=== PATIENT | female | born 1995 | race Caucasian/White ===

== ENCOUNTER 2017-05-02 03:03 | Inpatient (IN) | payer BC, OTHER, MEDICAID ==
[2017-05-02] MEDS ORDERED: Nalbuphine* 20 MG/ML 1 ML VIAL ONE (05:59)
[2017-05-02] MEDS ORDERED: Promethazine INJ(RESTRICTED)* 25 MG/ML 1 ML VIAL ONE (06:00)
[2017-05-02 08:03] LABS: Hematocrit 35 % (35-47); Hemoglobin 11.4 g/dl (12.0-16.0); Mean Corpuscular HGB Conc 33 g/dl (31-36); Mean Corpuscular Hemoglobin 24 pg (27-31); Mean Corpuscular Volume 75 fL (80-97); Mean Platelet Volume 8 um3 (7.4-10.4); Platelet Count 283 10^3/ul (150-450); Red Blood Count 4.67 10^6/ul (4.0-5.4); Red Cell Distribution Width 19 % (10.5-15); White Blood Count 14.7 10^3/ul (3.5-10.8)
[2017-05-02] MEDS ORDERED: OBEPIDURAL* 250 ML EPIDURAL ONE (10:09)
[2017-05-02] MEDS ORDERED: Sodium Citrate/Citric Acid* 15 ML UDC PO PRN (10:29)
[2017-05-02] MEDS ORDERED: Famotidine TAB* 20 MG PO PRN (10:29)
[2017-05-02] MEDS ORDERED: EPHEDrine (Pressors)* 50 MG/ML VIAL IV PUSH PRN (10:29)
[2017-05-02] MEDS ORDERED: Phenylephrine IV* 40 MCG/ML 10 ML SYRINGE IV PUSH PRN (10:29)
[2017-05-02] MEDS ORDERED: OBEPIDURAL* 250 ML EPIDURAL SCH (11:00)
[2017-05-02] MEDS ORDERED: Oxytocin in LR* 20 UNITS/1,000 ML BAG IVPB SCH (15:00)
[2017-05-02] MEDS ORDERED: ceFOXitin 2 GM IVPREMIX* 2 GM/50 ML BAG ONE (20:27)
[2017-05-02] MEDS ORDERED: ceFOXitin 2 GM IVPREMIX* 2 GM/50 ML BAG IVPB ONE (20:29)
[2017-05-02] MEDS ORDERED: Midazolam* 1 MG/ML 10 ML VIAL (10 MG) ONE (20:58)
[2017-05-02] MEDS ORDERED: fentaNYL* 50 MCG/ML 2 ML VIAL (100 MCG VIAL) ONE (20:58)
[2017-05-02] MEDS ORDERED: Morphine PF AMP (0.5MG/ML)* 5 MG/10 ML AMP ONE (20:58)
[2017-05-02] MEDS ORDERED: KETAMINE HCL* 50 MG/ML 10 ML VIAL ONE (20:58)
[2017-05-02] MEDS ORDERED: Naloxone* 0.4 MG/ML 1 ML VIAL IV PRN ×2 (21:38→21:45)
[2017-05-02] MEDS ORDERED: Nalbuphine* 20 MG/ML 1 ML VIAL IV PRN (21:38)
[2017-05-02] MEDS ORDERED: oxyCODONE/Acetamin 5/325 MG* TAB PO PRN (21:38)
[2017-05-02] MEDS ORDERED: Ondansetron INJ* 2 MG/ML VIAL IV PRN (21:38)
[2017-05-02] MEDS ORDERED: diPHENhydraMINE IV* 50 MG/ML 1 ml VIAL (BENADRYL) IV PRN (21:38)
[2017-05-02] MEDS ORDERED: Scopolamine PATCH Remove* 1 NOTE MISC PATCH OFF PRN (21:38)
[2017-05-02] MEDS ORDERED: PROCHLORPERAZINE INJ 5 MG/ML 2 ML VIAL IV PRN (21:38)
[2017-05-02] MEDS ORDERED: Naloxone* 2 MG in NS 0.9% 250 ML* 250 ML IV PRN (21:38)
[2017-05-02] MEDS ORDERED: fentaNYL* 50 MCG/ML 2 ML VIAL (100 MCG VIAL) IV PRN (21:45)
[2017-05-02] MEDS ORDERED: EPHEDrine (Pressors)* 50 MG/ML VIAL ONE (22:27)
[2017-05-02] MEDS ORDERED: Lidocaine 2% EPI 1:200000 MPF* 20 ML VIAL ONE (22:27)
[2017-05-02] MEDS ORDERED: Scopolamine 1.5 mg* PATCH ONE (22:27)
[2017-05-02] MEDS ORDERED: Lidocaine 2% PF* 10 ML AMP ONE (22:27)
[2017-05-02] MEDS ORDERED: Dexamethasone IV* 4 MG/ML 1 ML (4 MG) ONE (22:27)
[2017-05-02] MEDS ORDERED: Ondansetron INJ* 2 MG/ML VIAL ONE (22:27)
[2017-05-02] MEDS ORDERED: Ketorolac INJ* 30 MG/ML 1 ML VIAL ONE (22:27)
[2017-05-02] MEDS ORDERED: Acetaminophen TAB* 325 MG PO PRN (22:32)
[2017-05-02] MEDS ORDERED: Dibucaine 1% 28.35 GM TUBE PR PRN (22:32)
[2017-05-02] MEDS ORDERED: Witch Hazel PAD* JAR TOPICAL PRN (22:32)
[2017-05-02] MEDS ORDERED: Glycerin ADULT SUPP PR PRN (22:32)
[2017-05-03] MEDS: Ketorolac INJ* 30 MG/ML 1 ML VIAL IV PRN ×4 (00:01→19:57)
[2017-05-03 06:16] LABS: ABS Basophils 0 10^3/ul (0-0.2); ABS Eosinophils 0 10^3/ul (0-0.6); ABS Monocytes 0.7 10^3/ul (0-0.8); ABS Neutrophils 19.1 10^3/ul (1.5-7.7); ABS Nucleated RBC 0 10^3/ul; Eosinophil % 0 % (0-6); Hematocrit 29 % (35-47); Hemoglobin 9.5 g/dl (12.0-16.0); Lymphocyte % 4.9 % (25-47); Mean Corpuscular HGB Conc 33 g/dl (31-36); Mean Corpuscular Hemoglobin 24 pg (27-31); Mean Corpuscular Volume 75 fL (80-97); Mean Platelet Volume 8 um3 (7.4-10.4); Nucleated Red Blood Cells % 0; Platelet Count 253 10^3/ul (150-450); Red Blood Count 3.91 10^6/ul (4.0-5.4); Red Cell Distribution Width 19 % (10.5-15); White Blood Count 20.9 10^3/ul (3.5-10.8)
[2017-05-03] MEDS: Simethicone TAB* 80 MG TAB.CHEW PO SCH ×4 (08:54→20:09)
[2017-05-03] MEDS: Docusate CAP* 100 MG PO SCH ×3 (08:54→19:57)
[2017-05-03] MEDS: Ferrous Gluconate TAB* 324 MG TAB PO SCH ×2 (08:54→19:57)
--- NOTE | 2017-05-03 09:41 | PN ---
Progress Note - Progress Note Date of Service: 05/03/17 Note: Anesthesia duramorph follow up, alert neuro ok, VSS, -NV, pain well controlled. s/p CS, continue oral meds.
[2017-05-03] MEDS ORDERED: Zolpidem TAB* 5 MG PO PRN (13:45)
[2017-05-03] MEDS ORDERED: oxyCODONE/Acetamin 5/325 MG* TAB PO PRN (13:45)
[2017-05-04] MEDS: oxyCODONE/Acetamin 5/325 MG* TAB PO PRN ×5 (03:27→22:38)
[2017-05-04] MEDS: Ibuprofen TAB* 600 MG PO PRN ×4 (03:28→20:34)
[2017-05-04] MEDS: Simethicone TAB* 80 MG TAB.CHEW PO SCH ×4 (09:09→20:34)
[2017-05-04] MEDS: Docusate CAP* 100 MG PO SCH ×3 (09:09→20:34)
[2017-05-04] MEDS: Ferrous Gluconate TAB* 324 MG TAB PO SCH ×2 (09:10→20:34)
[2017-05-05] MEDS: oxyCODONE/Acetamin 5/325 MG* TAB PO PRN (03:38)
[2017-05-05] MEDS: Ibuprofen TAB* 600 MG PO PRN (03:39)
[2017-05-05 08:02] VITALS: BP 127/60
[2017-05-05] MEDS: Simethicone TAB* 80 MG TAB.CHEW PO SCH (08:39)
[2017-05-05] MEDS: Docusate CAP* 100 MG PO SCH (08:39)
[2017-05-05] MEDS: Ferrous Gluconate TAB* 324 MG TAB PO SCH (08:39)
--- NOTE | 2017-05-05 23:41 | OP ---
CC: Dr. Bree Mosley * DATE OF OPERATION: 05/02/17 - ROOM #116 DATE OF : [birth year] SURGEON: Damion Lehman MD CONTROL INTEGRATION ENGINEER: Dr. Mosley. ANESTHESIA: Epidural. PRE-OP DIAGNOSIS: Intrauterine at 40 weeks with arrest of dilation and labor. POST-OP DIAGNOSIS: Intrauterine at 40 weeks with arrest of dilation and labor. OPERATIVE PROCEDURE: Primary low-transverse section. FLUIDS: She received 1600 cc of IV crystalloid fluid. ESTIMATED BLOOD LOSS: 700 cc. URINE OUTPUT: Clear. FINDINGS: Delivery of a male weighing 8 pounds 2 ounces with Agars of 9 and 9 over meconium-stained fluid. The placenta, uterus, bowel, bladder, and adnexa were within normal limits. There were no complications. DESCRIPTION OF PROCEDURE: The patient was taken to the operating room where she was identified. She was placed on the operating room table where an epidural anesthetic was obtained without difficulty. She was then placed in the supine position with a leftward tilt, prepped and draped in a normal sinus rhythm. A Pfannenstiel skin incision was made with a knife and extended laterally and extended down to the fascia. The fascia was nicked in the midline and extended laterally with curved Solomon scissors. The fascia was then grasped superiorly and inferiorly with Mich clamps and dissected off sharply from the rectus muscle. The rectus muscle were in the midline bluntly. Peritoneum was identified, grasped with pickups, and entered sharply with Metzenbaum scissors and extended superiorly and inferiorly sharply. A bladder blade was inserted into the patient's abdomen. A bladder flap was created using Metzenbaum scissors over which the bladder blade was then reinserted. A low transverse skin incision was made with a knife extended laterally with bandage scissors. Amniotic sac was noted to have meconium fluid. 's head was then grasped and delivered atraumatically. The rest of the infant's body was then delivered. The cord was clamped and cut. The was handed off to awaiting mud cleaner operator. Cord bloods were obtained. The placenta was removed manually. The uterus was then exteriorized, cleared of all clot and debris using moist laparotomy sponges. The uterine incision was then closed using 0-Polysorb suture in a running locked fashion with a second imbricating layer of 0 Polysorb suture. The uterus was then returned to the patient's abdomen. The gutters were then cleared off all clot and debris using moist laparotomy sponges. All the sponges and instruments were removed from the patient's abdomen. The uterine incision was noted to be hemostatic. The peritoneum was then closed using 3-0 Polysorb suture in a running fashion. The fascia was closed used 0 Polysorb suture in a running fashion. The subcutaneous layer and the John's layer was approximated with 3-0 Polysorb suture interrupted stitches and the skin was closed with 4-0 Monocryl subcuticular stitch. The patient tolerated the procedure well. Sponge, lap, and needle counts were correct x2. She was then transferred to the recovery room area in stable condition. [id number]/[facility] #: [id number] TIFFANY
--- NOTE | 2017-05-06 00:23 | OP ---
CC: Bree Mosley MD, [facility] * DATE OF OPERATION: 05/02/17 - ROOM #116 DATE OF : [birth year] SURGEON: Damion Lehman MD BRICK KILN BURNER: Bree Mosley MD ANESTHESIA: Epidural. PRE-OP DIAGNOSIS: at 40 weeks, arrest of dilation and labor. POST-OP DIAGNOSIS: at 40 weeks, arrest of dilation and labor. OPERATIVE PROCEDURE: Primary low transverse section. ESTIMATED BLOOD LOSS: 700 cc. IV FLUIDS: 1600 cc of crystalloid fluid. URINE OUTPUT: Clear. FINDINGS: Delivery of a female infant weighing 8 pounds 2 ounces, Apgars of 9 and 9 over meconium-stained fluid. The placenta, uterus, bowel and bladder were all within normal limits. COMPLICATIONS: There were no complications. DESCRIPTION OF PROCEDURE: The patient was taken to the operating room where she was identified. She was placed on operating table. After an epidural anesthetic was obtained, it was deemed to be adequate, she was then placed in the supine position with a leftward tilt, prepped and draped in a normal sterile fashion. A Pfannenstiel skin incision was made with a knife and carried through to the underlying layer of fascia. The fascia was nicked in the midline and extended laterally with curved Solomon scissors. The fascia was then grasped superiorly and inferiorly with Mich clamps and dissected off sharply from the rectus muscle. The rectus muscle was in the midline bluntly. The peritoneum was identified, grasped with pickups, and entered sharply with Metzenbaum scissors. The peritoneum was then extended superior, inferiorly, sharply. A bladder blade was inserted in the patient's abdomen, a bladder flap was created using Metzenbaum scissors over which the bladder blade was then reinserted. A low transverse uterine incision was then made with a knife and extended laterally with bandage scissors. The 's head was then grasped and delivered atraumatically. The rest of the infant's body was then delivered. The cord was clamped and cut and the infant was handed off to the awaiting protection manager. Cord bloods were obtained. The placenta was removed manually. The uterus was then exteriorized, cleared of all clot and debris using moist laparotomy sponges. The uterine incision was then closed using 0 Polysorb suture in a running locked fashion with the second imbricating layer of 0 Polysorb suture was also performed. The uterus was then returned to the patient's abdomen. The gutters were then cleared of all clot and debris using moist laparotomy sponges. All the sponges were removed from the patient's abdomen as well as the instrument. The peritoneum was then closed using 3-0 Polysorb suture in a running fashion. The fascia was closed using 0 Polysorb suture in a running fashion. John's layers were then closed using interrupted 3-0 Polysorb sutures and the skin was closed with a 4-0 Monocryl stitch. The patient tolerated the procedure well. Sponge, lap, needle counts were correct x2. She was then transferred to recovery room area in stable condition. [id number]/[facility] #: [id number] TIFFANY
== END 2017-05-05 12:35 | disposition home or self-care (01) | DRG 540 ==
LOC: MCHOBOUT 03:03 → MCHOB 05:47
PROVIDERS: ADMIT Obstetrics & Gynecology; ATTEND Obstetrics & Gynecology
PROC: 4A1HXCZ Monitoring of Products of Conception, Cardiac Rate, External Approach (ICD-10-PCS; 2017-05-02)
PROC: 10907ZC Drainage of Amniotic Fluid, Therapeutic from Products of Conception, Via Natural or Artificial Opening (ICD-10-PCS; 2017-05-02)
PROC: 10H07YZ Insertion of Other Device into Products of Conception, Via Natural or Artificial Opening (ICD-10-PCS; 2017-05-02)
PROC: 4A1H7CZ Monitoring of Products of Conception, Cardiac Rate, Via Natural or Artificial Opening (ICD-10-PCS; 2017-05-02)
PROC: 10D00Z1 Extraction of Products of Conception, Low, Open Approach (ICD-10-PCS; principal; 2017-05-02 21:07)
DX: O48.0 Post-term pregnancy (principal); Z68.42 Body mass index [BMI] 45.0-49.9, adult; E66.01 Morbid (severe) obesity due to excess calories; Z3A.40 40 weeks gestation of pregnancy; Z37.0 Single live birth; O99.52 Diseases of the respiratory system complicating childbirth; J45.909 Unspecified asthma, uncomplicated; O77.0 Labor and delivery complicated by meconium in amniotic fluid; O62.1 Secondary uterine inertia; O90.81 Anemia of the puerperium; O99.214 Obesity complicating childbirth
CPT/HCPCS: 36415; 85025; 85027; 86850; 86900; 86901; A9270-GY; J0694; J1100; J1200; J1885; J2001; J2250; J2300; J2405; J2550; J3010

== ENCOUNTER 2019-05-03 11:09 | Day surgery (SDC) | payer OTHER ==
[~2019-05-03 11:09] MED LIST: Buffered Lidocaine 1% SYRIN* 1 ML/SYRINGE INTRADERM ONE; Lactated Ringers 1000 ML Bag* 1,000 ML IV SCH
[2019-05-03] MEDS ORDERED: ceFAZolin 2 GM in NS PREMIX(*) 2 GM/100 ML BAG IVPB ONE (11:42)
[2019-05-03] MEDS ORDERED: Buffered Lidocaine 1% SYRIN* 1 ML/SYRINGE INTRADERM ONE (11:42)
[2019-05-03] MEDS ORDERED: fentaNYL* 50 MCG/ML 2 ML VIAL (100 MCG VIAL) ONE (11:57)
[2019-05-03] MEDS ORDERED: Midazolam* 1 MG/ML 2 ML VIAL (2 MG) ONE (11:58)
[2019-05-03] MEDS ORDERED: Bupivacaine 0.5% SDV PF* 30ML VIAL ONE (12:19)
[2019-05-03] MEDS ORDERED: Bupivacaine 0.25% SDV* 30 ML ONE (12:49)
[2019-05-03] MEDS ORDERED: Naloxone* 0.4 MG/ML 1 ML VIAL IV PRN (12:52)
[2019-05-03] MEDS ORDERED: Lidocaine 2% PF * 5 ML VIAL ONE (13:07)
[2019-05-03] MEDS ORDERED: Ondansetron INJ* 2 MG/ML VIAL ONE (13:07)
[2019-05-03] MEDS ORDERED: Dexamethasone IV* 4 MG/ML 1 ML (4 MG) ONE (13:07)
[2019-05-03] MEDS ORDERED: Propofol* 10 MG/ML 20 ML BTL ONE (13:07)
[2019-05-03] MEDS ORDERED: HYDROmorphone INJ1* 1 MG/ML SYRINGE ONE (14:40)
[2019-05-03] MEDS: HYDROmorphone INJ1* 1 MG/ML SYRINGE IV PRN ×2 (14:43→15:07)
[2019-05-03] MEDS ORDERED: Ketorolac INJ* 30 MG/ML 1 ML VIAL IV PRN (15:10)
[2019-05-03] MEDS ORDERED: oxyCODONE TAB* 5 MG TAB PO PRN (15:10)
[2019-05-03] MEDS ORDERED: Acetaminophen IV 1GM/100ML * 1,000 MG/100 ML VIAL IVPB ONE (15:10)
[2019-05-03] MEDS ORDERED: Acetaminophen IV 1GM/100ML * 100 ML ONE (15:29)
[2019-05-03] MEDS ORDERED: Ketorolac INJ* 30 MG/ML 1 ML VIAL ONE (15:29)
[2019-05-03 17:20] VITALS: BP 104/43
--- NOTE | 2019-05-03 18:10 | OP ---
Operative Report - Blank - Operative Report Date of Operation: 05/03/19 Note: PATIENT: Juju Lopez DATE OF : 1995 DATE OF SURGERY: 05/03/2019 SURGEON: Evgeny Dueñas MD TELECOMMUNICATIONS ENGINEER: ALISA Sanchez, whos assistance was necessary for positioning, retraction, help with instrumentation, and closure. ANESTHESIOLOGIST: Dr. De Souza PREOPERATIVE DIAGNOSIS: Left foot Lisfranc injury with Lisfranc ligament tear and 1st and 2nd TMT joint subluxation POSTOPERATIVE DIAGNOSIS: Left foot Lisfranc injury with Lisfranc ligament tear, 1st and 2nd TMT joint subluxation, and intercuneiform instability OPERATION: 1. Left foot open reduction and internal fixation of the 1st TMT joint. 2. Left foot open reduction and internal fixation of the 2nd TMT joint. 3. Left foot open reduction and internal fixation of the medial intercuneiform joint. ANESTHESIA: General IMPLANTS: Arthrex CFS plate and screws and 4.0mm cannulated screws x2 TOURNIQUET TIME: Less than 2 hours with a well padded thigh tourniquet at 250 mmHg SPECIMENS: none ESTIMATED BLOOD LOSS: minimal COMPLICATIONS: none STATUS: Stable from the operating room to the recovery room and then home. INDICATIONS FOR PROCEDURE: Juju sustained a fall with a left midfoot Lisfranc injury. Both operative and non operative treatment alternatives were reviewed. Further, the nature and risks of surgery were reviewed in careful detail, in the office as well as the pre-operative holding area. Our discussions regarding the risks of surgery included, but were not limited to, infection, wound problems, nerve injury, neuroma, RSD, persistent symptoms, blood clot, fracture, post-traumatic arthritis, hardware pain, need for further surgery, malunion, nonunion, persistent midfoot instability, failure of the surgery, and even the remote chance of catastrophic complication. DESCRIPTION OF PROCEDURE: The patient was seen in the preoperative holding unit and informed written consent was obtained. The appropriate extremity was marked. The patient was then brought to the operating room and carefully positioned on the operating room table. Anesthesia was induced. All bony prominences were padded with great care. A chlorhexidine based pre-scrub was performed followed by a chloraprep prep and drape in standard sterile fashion. A surgical safety pause was then conducted in which we confirmed the appropriate patient, extremity, planned procedure, availability of equipment, indication and administration of prophylactic antibiotics, and DVT prophylaxis in the form of a compression boot on the non-surgical extremity. I performed an Esmarch exsanguination of the limb and inflated the tourniquet. I utilized a longitudinal incision centered at the base of the first and second metatarsals. I carefully dissected down through the soft tissues with great care taken to protect the superficial and deep neurovascular structures. The deep neurovascular bundle was visualized and carefully protected throughout the procedure. I then exposed the first and second tarsometatarsal joints, both of which were subluxated and grossly unstable. I was able to easily pass a [place] through the Lisfranc interval. Furthermore, there was instability of the medial intercuneiform joint. The first TMT joint was manually reduced and a 0.045 K-wire was used to hold the joint provisionally reduced. Fluoroscopy was used to confirm a good reduction. I then used a pointed reduction clamp to reduce the base of the second metatarsal to the medial cuneiforms, and tighten the Lisfranc interval. A separate incision was made medially and a guidewire for a 4.0 mm cannulated screw was driven from the medial cuneiform through the base of the second metatarsal under fluoroscopic guidance. This was measured and then overdrilled with a cannulated drill. A 4.0 mm cannulated screw was then placed over the guidewire. The pointed reduction clamp was then removed and the 2nd TMT joint and Lisfranc interval were held well reduced by the hardware. A T-plate was then chosen and contoured to fit the dorsum of the first TMT joint and medial column. This was held provisionally with olive wires and then 4 screws were placed into the first metatarsal and medial cuneiform. The provisional fixation was then removed and the joint was held well reduced. This was confirmed fluoroscopically. All of the screws had excellent purchase. There was still medial into cuneiform joint instability appreciated, so I elected to place a 4.0 mm cannulated screw from the medial cuneiform into the middle cuneiform. This nicely stabilized the instability of this joint. At this point, final fluoroscopic images were obtained. Additionally, I manually inspected all of these joints and no instability was appreciated. The wounds were copiously irrigated and then closed in layers meticulously utilizing 3-0 Monocryl and 3-0 nylon for the skin. A sterile dressing was then applied followed by a splint with the ankle in a neutral position. The patient was then awakened from anesthesia and transferred to the recovery room in stable condition. There were no complications. All needle and sponge counts were correct at the end of the case. ATTESTATION: I attest I was present and scrubbed and performed the critical portions of the procedure myself. POSTOPERATIVE PLAN: Follow up will be in 2 weeks for likely suture removal and postop x-rays. The postoperative plan is to be [id number] for 2 months , then weight-bearing as tolerated in a boot between months 2-3, and then into regular shoes at 3 months postop.
== END 2019-05-03 16:25 | disposition home or self-care (01) ==
LOC: OR 11:09
PROVIDERS: ATTEND Orthopaedic Surgery
DX: S93.622A Sprain of tarsometatarsal ligament of left foot, initial encounter (principal); S93.322A Subluxation of tarsometatarsal joint of left foot, initial encounter; S93.312A Subluxation of tarsal joint of left foot, initial encounter; W10.9XXA Fall (on) (from) unspecified stairs and steps, initial encounter; Y92.219 Unspecified school as the place of occurrence of the external cause; Y99.0 Civilian activity done for income or pay; G89.18 Other acute postprocedural pain; E66.9 Obesity, unspecified
CPT/HCPCS: 81025; C1713; C1776; J0690; J1100; J1170; J1885; J2250; J2405; J2704; J3010; J3490